=== PATIENT | female | born 1970 | race Caucasian/White ===

== ENCOUNTER 2018-10-23 13:29 | Emergency (ER) | payer MEDICAID, OTHER ==
--- NOTE | 2018-10-23 14:36 | EDPHY ---
H & P Stated Complaint: Rolled L ankle this afternoon, deformity/swelling. No paresthesia Time Seen by Provider: 10/23/18 14:16 HPI/ROS: HPI: This is a 48-year-old female who presents with Chief Complaint: Rolled L ankle this afternoon, deformity/swelling. No paresthesia Location: Left ankle Quality: Injury, swelling, pain Duration: This morning Signs and Symptoms: No bleeding,+ radiation, no numbness, no weakness, no tingling, no incontinence, + decreased range of motion, + swelling, + pain, no fever Timing: Acute Severity: 11/09 Context: Patient was walking down the stairs from her daughter's graduation when she everted her left ankle and felt immediate, constant, severe pain that radiated down into her left foot. She heard "a popping sensation." She has increased pain with weight-bearing and significant swelling almost immediately. Denies weakness, paresthesias. Nunez patient. Modifying Factors: No ice pack applied her [id number] medications taken Comment: ROS: A comprehensive 10 system review of systems is otherwise negative aside from elements mentioned in the history of present illness. MEDICAL/SURGICAL/SOCIAL HISTORY: Medical history: Generally healthy. Does not take any regular medications. Surgical history: Tubal ligation, appendectomy Social history: Nonsmoker, , employed at [employer] and works 10-12 hour shifts on her feet CONSTITUTIONAL: Well-developed, well-nourished middle-aged white female, awake and alert, no obvious distress HEENT: Atraumatic and normocephalic, PERRL, EOMI. Nares patent; no rhinorrhea; no nasal mucosal edema. Tympanic membranes clear. Oropharynx clear, no exudate and moist pink mucosa. Airway patent. No lymphadenopathy. No meningismus. Cardiovascular: Normal S1/S2, regular rate, regular rhythm, without murmur rub or gallop. PULMONARY/CHEST: Symmetrical and nontender. Clear to auscultation bilaterally. Good air movement. No accessory muscle usage. ABDOMEN: Soft, nondistended, nontender, no rebound, no guarding, no peritoneal signs, no masses or organomegaly. No CVAT. EXTREMITIES: 2/2 pedal pulses, strength 5/5, left Ankle: Moderate lateral malleolus swelling and ecchymosis; Plantar flexion to 50, dorsiflexion to 20. Foot inversion to 35 degree. Moderate tenderness/swelling Anterior talofibular ligament. Mild tenderness/swelling Calcaneofibular ligament, mild tenderness/swelling posterior talofibular ligament, moderate tenderness/ swelling posterior inferior tibiofibular ligament. Achilles tendon intact. no deformities, no clubbing, no cyanosis or edema. Negative Homans sign. NEUROLOGICAL: no focal neuro deficits. GCS 15. SKIN: Warm and dry, no erythema. no rash. Good capillary refill. Source: Patient Exam Limitations: No limitations - Personal History Current Tetanus/Diphtheria Vaccine: Yes - Medical/Surgical History Hx Asthma: No Hx Chronic Respiratory Disease: No Hx Diabetes: No Hx Cardiac Disease: No Hx Renal Disease: No Hx Cirrhosis: No Hx Alcoholism: No Hx HIV/AIDS: No Hx Splenectomy or Spleen Trauma: No Other PMH: appendectomy, tubal ligation - Social History Smoking Status: Never smoked Constitutional: Initial Vital Signs Temperature (C) 36.7 C 10/23/18 13:35 Heart Rate 72 10/23/18 13:35 Respiratory Rate 18 10/23/18 13:35 Blood Pressure 129/80 H 10/23/18 13:35 O2 Sat (%) 97 10/23/18 13:35 O2 Delivery Mode Room Air Allergies/Adverse Reactions: No Known Allergies Allergy (Unverified 10/23/18 13:35) Home Medications: Medication Instructions Recorded oxyCODONE/APAP 5/325 [Percocet 1 - 2 tab PO Q4H PRN #12 tab 10/23/18 5/325 (*)] Medical Decision Making - Diagnostics Imaging Results: Imaging Impressions Ankle X-Ray 10/23/18 13:34 Impression: No acute osseous findings. Procedures: Procedure: Splint placement. A left Krishnamurthy boot was applied. After application of the splint I returned and re-examined the patient. The splint was adequately immobilizing the joint and distal to the splint the patient's circulation and sensation was intact. ED Course/Re-evaluation: Vital signs reviewed and stable upon arrival. Left ankle x-ray ordered and shows moderate soft tissue swelling but no fracture , no dislocation High-grade/grade 2 ankle sprain noted Placed in Krishnamurthy boot, crutches with toe-touch weight-bearing status and orthopedic follow-up Given Percocet here and then prescription for the same Patient has [employer] insurance No signs of neurovascular compromise/tenting of skin/compartment syndrome/ extremities and joints examined above and below area of concern and are neurovascularly intact. This patient was seen under the supervision of my secondary supervising physician. I evaluated and cared for this patient independently. Differential Diagnosis: Ankle injury differential diagnosis includes but is not limited to tibia fracture, fibula fracture, metatarsal fracture, LisFranc fracture, achilles tendon rupture, sprain. Departure - Departure Disposition: Home, Routine, Self-Care Clinical Impression: High ankle sprain of right lower extremity Qualifiers: Encounter type: initial encounter Qualified Code(s): S93.431A - Sprain of tibiofibular ligament of right ankle, initial encounter Grade 2 ankle sprain Qualifiers: Encounter type: initial encounter Laterality: left Qualified Code(s): S93.402A - Sprain of unspecified ligament of left ankle, initial encounter Condition: Good Instructions: Ankle Sprain (DC), Crutch Instructions (ED) Additional Instructions: Wear the walking boot while out of bed until pain free or seen by Orthopedics. Use crutches to aid ambulation. Start with toe-touch weight-bearing status. Take Tylenol 650 mg every 4 hours and/or Ibuprofen 600 mg every 8 hours with food as needed for pain. Use Percocet every 6 hours as needed for severe/break through pain. Do not use Tylenol and Percocet concomitantly. Apply ice for 30 minutes at a time; 2-3 times per day for the next 1-2 days. Follow up with Orthopedics in 7-10 days at which time they will evaluate and recommend with you if conservative management versus further imaging is indicated. The x-rays obtained in the emergency department today demonstrate no evidence of an obvious fracture. Sometimes fractures are not obvious on the initial set of x-rays performed in the ED. For this reason, you should have repeat x-rays performed in 7-10 days if you are having any pain exclude the possibility of an occult fracture. Referrals: Kenny Canela MD [Medical Doctor] - As per Instructions Stand Alone Forms: Work Excuse Prescriptions: oxyCODONE/APAP 5/325 [Percocet 5/325 (*)] 1 - 2 tab PO Q4H PRN #12 tab PRN Reason: Pain, Severe
[2018-10-23] MEDS ORDERED: OXYCODONE/APAP 5/325 TAB PO ONE (14:47)
[2018-10-23 15:54] VITALS: BP 108/65
== END 2018-10-23 15:52 | disposition home or self-care (01) ==
DX: S93.431A Sprain of tibiofibular ligament of right ankle, initial encounter (principal); X50.1XXA Overexertion from prolonged static or awkward postures, initial encounter; Y92.219 Unspecified school as the place of occurrence of the external cause
CPT/HCPCS: L4386